=== PATIENT | male | born 1990 | race African-American/Black ===

== ENCOUNTER 2017-07-27 15:02 | Emergency (ER) | payer OTHER, BC ==
[2017-07-27 15:11] VITALS: BP 135/88; PULSE 85; TEMP 98.7; BMI 27.3
[2017-07-27] MEDS ORDERED: DIPHTH,PERTUSS(ACELL),TET 0.5 ML DISP.SYRIN IM ONE (16:16)
[2017-07-27] MEDS ORDERED: AMPICILLIN NA/SULBACTAM NA 3 GM in SODIUM CHLORIDE 100 ML IVPB ONE (16:18)
[2017-07-27] MEDS ORDERED: AMPICILLIN NA/SULBACTAM NA 1.5 GM VIAL ONE (16:23)
[2017-07-27] MEDS ORDERED: BACITRACIN 15 GM TUBE TOPICAL OINTMENT ONE (17:21)
--- NOTE | 2017-07-27 17:57 | PDOC ---
History of Present Illness - General Chief Complaint: Bite Stated Complaint: BITE Time Seen by Provider: 07/27/17 15:44 History Source: Patient Exam Limitations: No Limitations - History of Present Illness Initial Comments: 07/27/17 17:56 Patient is a 27-year-old male, no significant medical history currently on no medication. 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 Spoke to complaint investigations officer Amber who responded to Incident. Dog is UTD wiht rabies until 02/22/2019. Report filed and sent to [facility]. Patient does not meet criteria for rabies vaccination. Past Medical History: Denies. Allergies: No known allergies Medications: None Family History: Non-contributory Social History: Denies smoking, alcohol use, or IVDU Review of Systems GENERAL/CONSTITUTIONAL: No fever or chills. No weakness. No weight change. HEAD, EYES, EARS, NOSE AND THROAT: No change in vision. No ear pain or discharge. No sore throat. CARDIOVASCULAR: No chest pain or shortness of breath. RESPIRATORY: No cough, wheezing, or hemoptysis. GASTROINTESTINAL: No nausea, vomiting, diarrhea or constipation. No rectal bleeding. GENITOURINARY: No dysuria, frequency, or change in urination. MUSCULOSKELETAL: No joint or muscle swelling or pain. No neck or back pain. SKIN : No rash or easy bruising. Puncture wounds with active bleeding to bilateral lateral calf NEUROLOGIC: No headache, vertigo, loss of consciousness, or loss of sensation. PSYCHIATRIC: No depression or anxiety. ENDOCRINE: No increased thirst. No abnormal weight change. HEMATOLOGIC/LYMPHATIC: No anemia, easy bleeding, or history of blood clots. ALLERGIC/IMMUNOLOGIC: No hives or skin allergy. No latex allergy. Physical Exam: GENERAL: The patient is awake, alert, and fully oriented, in no acute distress. LUNGS: Breath sounds equal, clear to auscultation bilaterally. No wheezes, and no crackles. HEART: Regular rate and rhythm, normal S1 and S2 without murmur, rub or gallop. MUSCULOSKELETAL: Normal range of motion, edema to right lateral calf. No clubbing or cyanosis. No cords, erythema, or tenderness. NEUROLOGICAL: Cranial nerves II through XII grossly intact. Normal speech, normal gait. SKIN: Warm, Dry, normal turgor, no rashes or lesions noted. Puncture wound measuring approximately 1 cm to bilateral lateral lower extremities Past History - Past Medical History Allergies/Adverse Reactions: Allergies Allergy/AdvReac Type Severity Reaction Status Date / Time No Known Allergies Allergy Verified 07/27/17 15:08 Home Medications: Ambulatory Orders Amox-Tr/K Cl [Augmentin - 875Mg Tablet] 1 tab PO BID #20 tablet 07/27/17 Oxycodone HCl/Acetaminophen [Percocet 5-325 mg Tablet] 1 - 2 tab PO Q4H #20 tablet MDD 10 07/27/17 Other medical history: denies - Immunization History Immunization Up to Date: Yes - Suicide/Smoking/Psychosocial Hx Smoking History: Never smoked *Physical Exam - Vital Signs Last Vital Signs Temp Pulse Resp BP Pulse Ox 98.7 F 85 20 135/88 98 07/27/17 15:08 07/27/17 15:08 07/27/17 15:08 07/27/17 15:08 07/27/17 15:08 ED Treatment Course - RADIOLOGY Radiology Studies Ordered: Category Date Time Status LEG TIB/FIB-LEFT [RAD] Stat Radiology 07/27/17 16:16 Taken - Medications Given in the ED: ED Medications Discontinued Medications Generic Name Dose Route Start Last Admin Trade Name Freq PRN Reason Stop Dose Admin Diphtheria/Tetanus/Acell Pertussis 0.5 ml 07/27/17 16:16 07/27/17 17:12 Boostrix - IM 07/27/17 16:17 0.5 ml .ONCE ONE Administration Ampicillin Sodium/Sulbactam 100 mls @ 200 mls/hr 07/27/17 16:18 07/27/17 16:46 Sodium 3 gm/ Sodium Chloride IVPB 07/27/17 16:47 200 mls/hr ONCE ONE Administration Oxycodone/Acetaminophen 1 combo 07/27/17 17:08 07/27/17 17:12 Percocet 5/325 - PO 07/27/17 17:09 1 combo ONCE ONE Administration Medical Decision Making - Medical Decision Making 07/27/17 20:24 A/P: Patient here for evaluation of bilateral lower extremity dog bite, because there were multiple bites with deep puncture to left lateral lower calf will send patient for x-ray to rule out foreign body, saline lock placed Unison 3 g given. We'll DC patient on Augmentin and Percocet as needed for pain. Patient with pain level of 10 while in emergency department one Percocet given. Patient instructed to monitor area for any increased redness swelling or signs of infection explained to patient that dog bites have tendency of increased infection. He verbalized understanding will take medication and follow-up as instructed. Xeroform, bacitracin and sterile dressings applied. I discussed the physical exam findings, ancillary test results and final diagnoses with the patient. I answered all of the patient's questions. The patient was satisfied with the care received and felt comfortable with the discharge plan and treatment plan. The patient will call to arrange follow-up and will return to the Emergency Department with any new, persisting or worsening symptoms. *DC/Admit/Observation/Transfer Diagnosis at time of Disposition: Dog bite of calf Qualifiers: Encounter type: initial encounter Laterality: unspecified laterality Qualified Code(s): S81.859A - Open bite, unspecified lower leg, initial encounter - Discharge Dispostion Disposition: HOME Condition at time of disposition: Good Admit: No - Prescriptions Prescriptions: Amox-Tr/K Cl [Augmentin - 875Mg Tablet] 1 tab PO BID #20 tablet Oxycodone HCl/Acetaminophen [Percocet 5-325 mg Tablet] 1 - 2 tab PO Q4H #20 tablet MDD 10 - Patient Instructions Printed Discharge Instructions: How to Care for a Domestic Animal Bite Additional Instructions: Please monitor area for any increased redness swelling or signs of infection Antibiotics as ordered recommend follow-up with primary care doctor in 2 days for wound evaluation Please note that dog bites can get highly infected it is important that you change dressing daily bacitracin, sterile dressing twice a day - Post Discharge Activity Forms/Work/School Notes: Back to Work
== END 2017-07-27 18:07 | disposition home or self-care (01) ==
LOC: JERFT 15:02
PROC: 3E0234Z Introduction of Serum, Toxoid and Vaccine into Muscle, Percutaneous Approach (ICD-10-PCS; principal; 2017-07-27)
PROC: 3E02329 Introduction of Other Anti-infective into Muscle, Percutaneous Approach (ICD-10-PCS; 2017-07-27)
PROC: 3E0234Z Introduction of Serum, Toxoid and Vaccine into Muscle, Percutaneous Approach (ICD-10-PCS; 2017-07-27)
DX: S81.852A Open bite, left lower leg, initial encounter (principal)
CPT/HCPCS: 73590-TC-LT; 90715; 99282-25